=== PATIENT | female | born 1990 | race Caucasian/White ===

== ENCOUNTER 2021-09-04 13:49 | Emergency (ER) | payer MEDICAID, SELFPAY ==
[2021-09-04 14:04] VITALS: BP 135/68; PULSE 113; RESP 20; TEMP 37.3; O2SAT 97
--- NOTE | 2021-09-04 15:34 | ED.URI ---
HPI - URI/Sore Throat General Chief Complaint: Upper Respiratory Infection Stated Complaint: headache light headed cough Source: patient and RN notes reviewed Mode of arrival: ambulatory History of Present Illness HPI Narrative: This is a 31-year-old female who presented to urgent care with complaints of hoarseness, congestion, body aches, shortness of breath. Restarted on the patient denies , CP, palpitation, extremity numbness, lightheadedness, dizziness, constipation, diarrhea, chills, or fever. Review of Systems Review of Systems: A 14 organ system Review of Systems was performed and pertinent positives included in the HPI, otherwise remaining ROS is negative. [facility] Family History Family History (Updated 09/04/21 @ 15:36 by JATIN Frankel-Cayla) Other Family history non-contributory Exam Narrative: GENERAL: This is a well-nourished, well-developed patient, in no apparent distress. HEAD: normocephalic, atraumatic. EYES: PERRL. Sclera clear/white. Vision is grossly intact. EARS: External ears normal, auditory canals clear and without drainage, TMs normal without perforation. Hearing grossly intact. NOSE: External nose normal with no obvious nasal discharge, nares without redness, no rhinorrhea. THROAT: Mucous membranes moist, posterior pharynx clear. NECK: Neck supple, non-tender without lymphadenopathy, masses or thyromegaly. CARDIOVASCULAR: Regular rate and rhythm without murmurs, gallops, or rubs. RESPIRATORY: Clear to auscultation. Breath sounds equal bilaterally. No wheezes, rales, or rhonchi. GASTROINTESTINAL: Abdomen soft, non-tender, nondistended. Bowel sounds are active. No hepato-splenomegaly, or palpable masses. No guarding. SKIN: warm, intact with no suspicious lesions or rash, good texture and turgor. NEURO: awake, alert, and oriented to person, place and time. There were no obvious focal neurologic abnormalities. Steady gait EXTREMITIES: Normal range of motion. No edema. No calf tenderness. Negative Homans sign bilaterally. BACK: Nontender without deformity or crepitance. No flank tenderness. Course Course Emergency Course: Patient will be treated for the symptoms diagnosed with viral illness. We will continue the use of her albuterol with guaifenesin, Tessalon Perles and Flonase Vital Signs Vital signs: Vital Signs Temperature 99.1 F 09/04/21 14:04 Pulse Rate 113 H 09/04/21 14:04 Respiratory Rate 20 09/04/21 14:04 Blood Pressure 135/68 09/04/21 14:04 Pulse Oximetry 97 09/04/21 14:04 Temperature 99.1 F 09/04/21 14:04 Pulse Rate 113 H 09/04/21 14:04 Respiratory Rate 20 09/04/21 14:04 Blood Pressure 135/68 09/04/21 14:04 Pulse Oximetry 97 09/04/21 14:04 MDM - URI/Sore Throat Differential Diagnosis Differential diagnosis: Likely upper respiratory infection, viral infection and influenza Discharge Plan Discharge Clinical Impression: Viral infection Patient Disposition: Home, Self-Care Condition: Stable Instructions: Antibiotic Form, Viral Syndrome (ED) Additional Instructions: This is likely viral illness, no antibiotic is needed at this time. Treatment is aimed toward your specific symptoms. You must treat your symptoms in order to feel better while the virus runs it's course. Recommend antihistamine such as Benadryl at night time and Claritin/Zyrtec/Risa during the day Use inhaler as needed for cough, wheezing, shortness of breath or chest tightness. -Hot steamy showers in the morning to help open up your sinuses -Hot tea with lemon and honey. A teaspoon of honey may help as a cough suppressant. -Increase fluid intake Frequent hand washing or hand gallery host is one of the best ways to prevent spread of infection. Please schedule a followup visit with your personal physician for further evaluation and treatment within 3-5days. Including recheck and discussion of your blood pressure. If your symptoms persist, change or worsen significantly befor
== END 2021-09-04 15:59 | disposition home or self-care (01) ==
PROVIDERS: Emergency Provider Nurse Practitioner
DX: B34.9 Viral infection, unspecified (principal); Z20.822 Contact with and (suspected) exposure to COVID-19
CPT/HCPCS: 87426; 99213; C9803; G0463